=== PATIENT | male | born 1995 | race Caucasian/White ===

== ENCOUNTER 2017-12-21 23:28 | Emergency (ER) | payer OTHER ==
[~2017-12-21] VITALS: Ht 180.3 cm; Wt 81.6 kg
[2017-12-22] MEDS ORDERED: ZANTAC300 MG PO (03:13)
[2017-12-22] MEDS ORDERED: ZOFRAN4 MG PO (03:13)
== END 2017-12-22 03:37 | disposition home or self-care (01) ==
LOC: ER 23:28
DX: K29.70 Gastritis, unspecified, without bleeding (principal)

== ENCOUNTER → 2018-03-02 | Emergency (ER) | payer OTHER ==
[~2018-03-02] VITALS: Ht 182.9 cm; Wt 83.9 kg
[~2018-03-02] MED LIST: ZANTAC300 MG PO; ZOFRAN4 MG PO
== END | disposition home or self-care (01) ==
LOC: ER 20:23
DX: S62.617A Displaced fracture of proximal phalanx of left little finger, initial encounter for closed fracture (principal); W21.05XA Struck by basketball, initial encounter; Y93.89 Activity, other specified; Y92.89 Other specified places as the place of occurrence of the external cause; Y99.8 Other external cause status

== ENCOUNTER → 2018-03-09 | Day surgery (SDC) | payer OTHER | END | disposition home or self-care (01) | LOC: CIR.AMB 08:30 → ADM 03-15 08:30 | DX: S63.285A Dislocation of proximal interphalangeal joint of left ring finger, initial encounter (principal) ==

== ENCOUNTER 2018-03-22 09:46 | Outpatient (CLI) | payer OTHER | END 2018-03-22 09:55 | disposition home or self-care (01) | LOC: RAD 09:46 | DX: M79.645 Pain in left finger(s) (principal) ==

== ENCOUNTER → 2018-05-03 | Outpatient (CLI) | payer OTHER | END | disposition home or self-care (01) | LOC: RAD 13:24 | DX: M79.645 Pain in left finger(s) (principal) ==

== ENCOUNTER 2018-10-13 00:28 | Emergency (ER) | payer OTHER ==
[~2018-10-13] VITALS: Ht 182.9 cm; Wt 83.9 kg
[2018-10-13] MEDS ORDERED: PEPCID40 MG PO (05:56)
[2018-10-13] MEDS ORDERED: ZOFRAN ODT4 MG PO (05:56)
== END 2018-10-13 06:07 | disposition home or self-care (01) ==
LOC: ER 00:28 → EDBD 00:48 → ER 06:07
DX: K29.70 Gastritis, unspecified, without bleeding (principal)